=== PATIENT | female | born 2000 | race Two or more races ===

== ENCOUNTER 2018-09-02 05:59 | Emergency (ER) | payer OTHER ==
[2018-09-02 06:36] LABS: ABSOLUTE EOSINOPHILS # (AUTO) 0.2 10^3/uL (0.0-0.6); ABSOLUTE LYMPHOCYTES (AUTO) 2.2 10^3/uL (0.5-4.7); ABSOLUTE MONOCYTES (AUTO) 0.4 10^3/uL (0.1-1.4); ABSOLUTE NEUT (AUTO) 2.1 10^3/uL (1.7-8.2); BASOPHILS % (AUTO) 0.5 % (0-2); EOSINOPHILS % (AUTO) 3.3 % (0-6); HEMATOCRIT 39.4 % (36.0-47.0); HEMOGLOBIN 12.8 g/dL (12.0-15.5); LYMPHOCYTES % (AUTO) 45.3 % (13-45); MEAN CORPUSCULAR HEMOGLOBIN 25.8 pg (27.0-33.4); MEAN CORPUSCULAR HGB CONC 32.5 g/dL (32.0-36.0); MEAN CORPUSCULAR VOLUME 80 fl (80-97); MONOCYTES % (AUTO) 7.5 % (3-13); PLATELET COUNT 231 10^3/uL (150-450); RED BLOOD COUNT 4.95 10^6/uL (3.72-5.28); RED CELL DISTRIBUTION WIDTH 15.4 % (11.5-14.0); SEGMENTED NEUTROPHILS % (AUTO) 43.4 % (42-78); TOTAL CELLS COUNTED % (AUTO) 100 %; WHITE BLOOD COUNT 4.9 10^3/uL (4.0-10.5)
[2018-09-02 06:46] LABS: APPEARANCE,URINE CLEAR; BILIRUBIN,URINE NEGATIVE (NEGATIVE); COLOR,URINE YELLOW; GLUCOSE, URINE NEGATIVE (NEGATIVE); KETONES,URINE NEGATIVE (NEGATIVE); LEUKOCYTE ESTERASE,URINE NEGATIVE (NEGATIVE); NITRITE,URINE NEGATIVE (NEGATIVE); PROTEIN,URINE NEGATIVE (NEGATIVE); URINE SPECIFIC GRAVITY 1.017; UROBILINOGEN,URINE NEGATIVE mg/dL (<2.0)
[2018-09-02] MEDS ORDERED: NORMAL SALINE 1000 ML 1,000 ML IV ONE (06:48)
[2018-09-02] MEDS ORDERED: KETOROLAC TROMETHAMINE INJ/PF 30 MG/1 ML SDV IV ONE (06:48)
[2018-09-02] MEDS ORDERED: ONDANSETRON HCL INJ/PF 4 MG/2 ML SDV IV ONE (06:53)
--- NOTE | 2018-09-02 06:53 | ER Document Report ---
ED General - General Chief Complaint: Abdominal Pain Stated Complaint: ABDOMINAL PAIN Time Seen by Provider: 09/02/18 06:43 TRAVEL OUTSIDE OF THE [place] IN LAST 30 DAYS: No - HPI Notes: Patient is a 18-year-old female that presents to the emergency department for chief complaint of abdominal pain. Patient had acute onset of abdominal pain 2-3 hours ago when she woke up to breast-feed her daughter. Patient states that she has pain diffusely across her upper abdomen. The pain has started to subside but now compared to onset but has been constant. Now the pain seems to be located more in her epigastric and right upper quadrant region. She reports associated nausea but denies any vomiting. She denies any diarrhea, fevers or chills. She states she has been healthy and felt normal when she went to bed. She had a vaginal delivery 1 month ago that was uncomplicated, at [facility]. She denies any current vaginal bleeding or discharge. She has not taken any [id number] medications for her pain. Past Medical History: Negative Past Surgical History: Tonsils and adenoids, wisdom teeth removal Social History: Denies drugs alcohol and tobacco Family History: Reviewed and noncontributory for presenting illness Allergies: Reviewed, see documented allergy list. REVIEW OF SYSTEMS: CONSTITUTIONAL : No fever No chills No diaphoresis No recent illness EENT: No vision changes No congestion No sore throat CARDIOVASCULAR: No chest pain No palpitations RESPIRATORY: No shortness of breath No cough No difficulty breathing GASTROINTESTINAL: abdominal pain nausea No vomiting No diarrhea GENITOURINARY: No dysuria No hematuria No difficulty urinating MUSCULOSKELETAL: No back pain No leg pain No arm pain SKIN: No rashes No lesions LYMPHATIC: No swollen, enlarged glands. NEUROLOGICAL: No lightheadedness No headache No weakness No paresthesias PSYCHIATRIC: No anxiety No depression PHYSICAL EXAMINATION: Vital signs reviewed, nursing noted reviewed. GENERAL: Well-appearing, well-nourished and in no acute distress. HEAD: Atraumatic, normocephalic. EYES: Eyes appear normal, extraocular movements intact, sclera anicteric, conjunctiva are normal. ENT: nares patent, oropharynx clear without exudates. Moist mucous membranes. NECK: Normal range of motion, supple without lymphadenopathy LUNGS: Breath sounds clear to auscultation bilaterally and equal. No wheezes rales or rhonchi. HEART: Regular rate and rhythm without murmurs ABDOMEN: Soft, right upper quadrant tenderness to palpation, positive Martinez sign, normoactive bowel sounds. No rigidity or rebound tenderness. No masses appreciated. EXTREMITIES: Nontender, good range of motion, no pitting or edema. NEUROLOGICAL: No focal neurological deficits. Moves all extremities spontaneously Motor and sensory grossly intact on exam. PSYCH: Normal mood, normal affect. SKIN: Warm, Dry, normal turgor, no rashes or lesions noted on exposed skin - Related Data Allergies/Adverse Reactions: No Known Allergies Allergy (Verified 09/02/18 07:36) Past Medical History - Social History Smoking Status: Never Smoker Frequency of alcohol use: None Drug Abuse: None Family History: Reviewed & Not Pertinent Patient has suicidal ideation: No Patient has homicidal ideation: No Renal/ Medical History: Denies: Hx Peritoneal Dialysis Past Surgical History: Reports: Hx Tonsillectomy Review of Systems - Review of Systems Notes: Dictated Physical Exam - Vital signs Vitals: Temp Pulse Resp BP Pulse Ox 97.6 F 88 20 120/74 99 09/02/18 06:06 09/02/18 06:06 09/02/18 06:06 09/02/18 06:06 09/02/18 06:06 - Notes Notes: Dictated Course - Re-evaluation Re-evalutation: 09/02/18 06:53 Vitals reviewed. Nursing notes reviewed. Patient given IV hydration and pain medication for symptomatic management. She has a positive Martinez sign and ultrasound will be obtained to evaluate for acute cholecystitis. 09/02/18 08:16 Patient reevaluated and is feeling much better. She has been able to get up and walk around. Her ultrasound shows no acute cholecystitis. Lipase level is normal. She has no electrolyte derangements. There are no signs of renal insufficiency or dehydration. Patient will be discharged home with a prescription for Zofran for symptom medic management at home. She was counseled on dietary changes. She was counseled on symptoms to return to the emergency room. Patient will follow with primary care in the next few days for reevaluation if not improving. Discharged home in stable condition. Laboratory 09/02/18 09/02/18 09/02/18 06:25 06:25 06:25 WBC 4.9 RBC 4.95 Hgb 12.8 Hct 39.4 MCV 80 MCH 25.8 L MCHC 32.5 RDW 15.4 H Plt Count 231 Seg Neutrophils % 43.4 Lymphocytes % 45.3 H Monocytes % 7.5 Eosinophils % 3.3 Basophils % 0.5 Absolute Neutrophils 2.1 Absolute Lymphocytes 2.2 Absolute Monocytes 0.4 Absolute Eosinophils 0.2 Absolute Basophils 0.0 Sodium 142.7 Potassium 4.0 Chloride 104 Carbon Dioxide 27 Anion Gap 12 BUN 20 Creatinine 0.67 Est GFR ( Amer) > 60 Est GFR (Non-Af Amer) > 60 Glucose 99 Calcium 9.6 Total Bilirubin 0.5 Direct Bilirubin 0.3 Neonat Total Bilirubin Not Reportable Neonat Direct Bilirubin Not Reportable Neonat Indirect Bili Not Reportable AST 66 H ALT 51 Alkaline Phosphatase 94 Total Protein 6.7 Albumin 4.1 Lipase 195.2 Urine Color YELLOW Urine Appearance CLEAR Urine pH 5.0 Ur Specific [place] 1.017 Urine Protein NEGATIVE Urine Glucose (UA) NEGATIVE Urine Ketones NEGATIVE Urine Blood SMALL H Urine Nitrite NEGATIVE Urine Bilirubin NEGATIVE Urine Urobilinogen NEGATIVE Ur Leukocyte Esterase NEGATIVE Urine WBC (Auto) 2 Urine RBC (Auto) 2 Squamous Epi Cells Auto <1 Urine Ascorbic Acid NEGATIVE Urine HCG, Qual NEGATIVE Abdomen Ultrasound 09/02/18 06:48 IMPRESSION: Unremarkable study. - Vital Signs Vital signs: Temp Pulse Resp BP Pulse Ox 97.6 F 88 20 120/74 99 09/02/18 06:06 09/02/18 06:06 09/02/18 06:06 09/02/18 06:06 09/02/18 06:06 - Laboratory Result Diagrams: 09/02/18 06:25 09/02/18 06:25 Laboratory results interpreted by me: 09/02/18 09/02/18 09/02/18 06:25 06:25 06:25 MCH 25.8 L RDW 15.4 H Lymphocytes % 45.3 H AST 66 H Urine Blood SMALL H Discharge - Discharge Clinical Impression: Abdominal pain Qualifiers: Abdominal location: upper abdomen, unspecified Qualified Code(s): R10.10 - Upper abdominal pain, unspecified Condition: Stable Disposition: HOME, SELF-CARE Instructions: Abdominal Pain ([facility]) Additional Instructions: Please return to the emergency department if you have any worsening, or concern of your symptoms. Please return to the emergency department if you develop chest pain, difficulty breathing, severe abdominal pain, or ongoing vomiting. Please follow-up with your primary care physician in 2-3 days and any other recommended physicians. If prescribed, take all medications as directed. If you have any questions or concerns do not hesitate to return the emergency department for evaluation. [] Prescriptions: Ondansetron [Zofran Odt 4 mg Tablet] 1 tab PO Q4H PRN #15 tab.rapdis PRN Reason: For Nausea/Vomiting
[2018-09-02 06:54] LABS: ALANINE AMINOTRANSFERASE 51 U/L (9-52); ALBUMIN 4.1 g/dL (3.5-5.0); ALKALINE PHOSPHATASE 94 U/L (38-126); ANION GAP 12 (5-19); ASPARTATE AMINO TRANSFERASE 66 U/L (14-36); BILIRUBIN,DIRECT 0.3 mg/dL (0.0-0.4); BILIRUBIN,TOTAL 0.5 mg/dL (0.2-1.3); BLOOD UREA NITROGEN 20 mg/dL (7-20); CALCIUM 9.6 mg/dL (8.4-10.2); CARBON DIOXIDE 27 mmol/L (22-30); CHLORIDE 104 mmol/L (98-107); GLUCOSE 99 mg/dL (75-110); LIPASE 195.2 U/L (23-300); SODIUM 142.7 mmol/L (137-145); TOTAL PROTEIN 6.7 g/dL (6.3-8.2)
--- NOTE | 2018-09-02 07:58 | RADIOLOGY REPORT (SQ) ---
CLINICAL HISTORY: RUQ pain, ryan eval COMPARISON: None. TECHNIQUE: US ABDOMEN DOPPLER LIMITED on 09/02/2018 6:48 AM [employer] CL[employer] FINDINGS: Liver is normal in echotexture. Portal vein is normal in appearance. Gallbladder is normally distended without wall thickening or gallstones. Common bile duct measures 5 mm. Right kidney measures 10.5 cm without hydronephrosis. Pancreas is partially visualized and is unremarkable. Abdominal aorta is not aneurysmal. IMPRESSION: Unremarkable study.
[2018-09-02 08:29] VITALS: BP 100/59
== END 2018-09-02 08:28 | disposition home or self-care (01) ==
LOC: ER 05:59
DX: R10.10 Upper abdominal pain, unspecified (principal)
CPT/HCPCS: 99284; 96361; 96374; 96375; 36415; 83690; 85025; 81025; 80053; 81001; 76705; 93976; J1885; J2405; J7030